=== PATIENT | male | born 1935 | race Caucasian/White ===

== ENCOUNTER 2016-08-11 10:57 | Observation (INO) ==
[2016-08-11] MEDS ORDERED: ACETAMINOPHEN 325 MG TABLET PO PRN (11:44)
[2016-08-11] MEDS ORDERED: MORPHINE 2 MG/1 ML SYRINGE IV PRN (11:44)
[2016-08-11] MEDS ORDERED: MAGNESIUM SULF RIDER 4 GM in PREMIX 1 EACH IV PRN (11:44)
[2016-08-11] MEDS ORDERED: DOCUSATE SODIUM 100 MG CAPSULE PO PRN (11:44)
[2016-08-11] MEDS ORDERED: ZALEPLON 5 MG CAPSULE PO PRN (11:44)
[2016-08-11] MEDS ORDERED: ONDANSETRON 4 MG/2 ML VIAL IV PRN (11:44)
[2016-08-11] MEDS ORDERED: MAGNESIUM SULF RIDER 2 GM in PREMIX 1 EACH IV PRN (11:44)
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
[2016-08-11 12:06] LABS: Basophils # 0.1 10*3/uL (0.0-0.2); Basophils % 0.5 % (0.0-0.8); Eosinophils # 0.2 10*3/uL (0.0-0.87); Eosinophils % 2.2 % (0.00-10.9); Hematocrit 40.4 VOL% (42.0-52.0); Hemoglobin 13.6 GM/DL (14.0-18.0); Immature Granulocytes % 0.9 %; Immature Granulocytes Absolute 0.09 #; Lymphocytes % 20.2 % (21.2-54.2); Mean Corpuscular HGB Conc 33.7 GM/DL (32-36); Mean Corpuscular Hemoglobin 31 PG (27-34); Mean Corpuscular Volume 90.8 FL (87-102); Mean Platelet Volume 12.5 FL (9.6-12.0); Monocytes # 0.8 10*3/uL (0.11-0.8); Monocytes % 7.7 % (1.7-12.7); Neutrophils # 6.9 10*3/uL (1.4-7.4); Neutrophils % 68.5 % (38.7-73.9); Platelet Count 213 T/CUMM (130-400); Red Blood Count 4.45 MC/CUMM (3.8-5.5); Red Cell Distribution Width 13.2 % (9.3-17.3); White Blood Count 10.1 T/CUMM (4-12)
--- NOTE | 2016-08-11 12:08 | EKG Report ---
Stationary ECG Study [facility] Test Date: 08/11/2016 12:08:38 PM Pat Name: MAINE GONSALVES Department: Room: 268 Gender: M Operations Liaison: : 1935 Requested by: Zonia Zee Order Number: [id number] Dat MD: HERB FERMIN Intervals [place] Rate: 54 P: 999 DE: 0 QRS: 75 QRSD: 101 T: 90 QT: 383 QTc: 370 Interpretive Statements ATRIAL FIBRILLATION WITH SLOW VENTRICULAR RESPONSE Electronically Signed On 08-11-16 15:57:50 CDT by HERB FERMIN [email or web address]
[2016-08-11 12:37] LABS: Bilirubin,Total 1.4 MG/DL (0.2-1.0); Calcium 9.3 MG/DL (8.5-10.1); Osmolality,Calculated 290.4 MOS/KG (273-304); Potassium 4.1 MMOL/L (3.5-5.1); Total Protein 5.8 G/DL (6.4-8.3)
--- NOTE | 2016-08-11 13:00 | CT Report ---
Exam: CT scan of brain without contrast Date: 08/11/2016 Indication: TIA headache neck pain trauma Comparison: 05/27/2010 Patient's classification: Inpatient Technical: Images were obtained from the skull base to the vertex without the use of intravenous contrast. Dose reduction was performed with decreasing kv and mA and automated exposure Total DLP: 1073.1 mGy*cm Findings: There is vascular calcification of the vertebral and internal carotid arteries. The brainstem is intact. The cerebellum reveals minimal atrophic changes. Atrophy is present within the cerebral hemispheres with small vessel ischemic changes present. Tiny lacunar infarction suspected in the right basal ganglia which has developed when compared to previous study from 2010 but appears chronic. Paranasal sinuses globes and sella mastoids are otherwise intact. Calvarium is unremarkable. Findings suggest old left zygomatic arch fracture Impression: 1. Global atrophy 2. Diffuse small vessel ischemic changes 3. Small lacunar infarction right basal ganglia appears chronic but new when compared to the previous exam. 4. No obvious acute hemorrhage infarction or mass effect clearly seen. PROCEDURE INTERPRETED AT [facility] DEPARTMENT OF RADIOLOGY Final Report Signed by: Dr. Jairo Mak
[2016-08-11] MEDS ORDERED: diphenhydrAMINE CAP 50 MG CAPSULE ONE (13:53)
[2016-08-11] MEDS ORDERED: DIAZEPAM 5 MG TABLET ONE (13:53)
[2016-08-11 14:00] LABS: Apearance,Urine CLOUDY (Clear); Bilirubin,Urine Negative (Negative); Blood, Urine Small mg/dL (Negative); Glucose,Urine (UA) Negative (Negative); Ketones,Urine Negative (Negative); Mucus,Urine Occasional /LPF (Occasional); Nitrite,Urine Positive (Negative); Protein,Urine 30 MG/DL; RBC,Urine 17 /HPF (0-4); Urine Color Yellow (Yellow); Urine Specific Gravity 1.013 (1.001-1.035); WBC,Urine 607 /HPF (0-6)
--- NOTE | 2016-08-11 14:48 | Neurology Consult Note ---
History of Present Illness History of present illness: Mr. Tate is a 81-year-old male, with past medical history significant for chronic atrial fibrillation admitted to the hospital with off and on slurred speech since Monday. Patient reported sometimes is difficult to get the words out. He is also complaining of some diffuse headache and questionable confusion. He does have difficulty in expressing his problems. However today he spoke fine. No slurred speech noticed. A CT scan shows right basal ganglia infarct but it is not clear that is new or old. Due to atrial fibrillation patient has been on Eliquis in the past for stroke prevention however he developed significant hematuria and Eliquis was stopped. He was continued on aspirin only. Never had a stroke before in his life. He has a history of left leg problems because of accident. Home Medications Medication Instructions Recorded Confirmed Type Atorvastatin [Lipitor] 40 mg PO BEDTIME 11/04/15 08/11/16 History Carvedilol 6.25 mg PO BID 11/04/15 08/11/16 History Digoxin Tab [Lanoxin Tab] 0.25 mg PO DAILY 11/04/15 08/11/16 History Irbesartan 150 mg PO BID 11/04/15 08/11/16 History Aspirin [Ecotrin] 81 mg PO DAILY 08/11/16 08/11/16 History Levothyroxine Tab [Synthroid Tab] 25 mcg PO DAILY@0700 08/11/16 08/11/16 History Allergies Allergy/AdvReac Type Severity Reaction Status Date / Time No Known Allergies Allergy Verified 11/05/15 11:24 12 point system: reviewed and no additional remarkable complaints except as stated Medical,Surgical,& Family Hx - Medical History Cardio: History of: Hypertension Endocrine: History of: Dyslipidemia Rheumatology: No history of;: Rheumatological Problems Genitourinary: History of: Kidney Stones Gastrointestinal: History of: Gastrointestinal Cancer, GI Problems (constipation ) Hematology: No history of: Blood Disorders - Surgical History Cardiac Surgeries: Sugical HX of: Cardiac Catheterization (stents) Abdominal Surgeries: Surgical HX of: Cholecystectomy Orthopedic Surgeries: Surgical HX of;: Orthopedic Surgery (left knee repair, jaw surgery) - Family History Family History: Reports;: Family Heart Disease, Family Hypertension - Social History Smoking Status: Never smoker Frequency of Alcohol Use: None Type of Drug Use: None Exam - Constitutional Vitals: Period Temp Pulse Resp BP Sys/Barber Pulse Ox Last 24 Hr 98.6 F-98.6 F 65-65 18 151/99 98 Exam: GENERAL: Patient is in no acute distress. NECK: Neck is supple. There is no JVD. No carotid bruits present. No thyroid masses. CVS: First and second heart sounds are normal. There is no S3 present. Regular rate and rhythm. RESPIRATORY: Lungs are clear to auscultation without any rales or rhonchi. ABDOMEN: Soft and non-tender. Bowel sounds are present. There is no hepatosplenomegaly. EXT: There is no palpable edema. Peripheral pulses are present. Skin: No rashes Central Nervous system: General: Alert, awake and Oriented x 3 Speech: Fluent Comprehension: Intact and normal Facial expressions: Normal Cranial Nerves: CN1/Olfactory: Normal CN II/ Optic: Normal, Visual Roman unreliable CN III, and : CONSTANTINE & EOMI CN V: Normal & intact CN VII: face is symmetric CNVIII: Normal CN XI/X/XI/XII: Intact and Normal Motor: Bulk and Tone is normal. Strength in the right 5/5 Strength in the left 4/5 Sensory: Grossly intact for all the modalities of PP, LT and temp sense Reflexes: 1+ and symmetrical Cerebellar function: Normal finger to nose and heel to [place] testing. Toes: Equivocal Gait: Able to get up and walk Results - Labs CBC & BMP: 08/11/16 11:55 08/11/16 11:55 Assessment and Plan (1) Slurred speech Status: Acute Assessment and plan: Continue aspirin for now Agree with urology consult MRI of the brain Carotid ultrasound Lipid panel Thank you for the consult Current Visit: Yes
--- NOTE | 2016-08-11 15:33 | XRay Report ---
Portable chest Date: 08/11/2016 Clinical history: Shortness of breath Comparison: 05/31/2010 Technique: Portable AP sitting chest Findings: The heart is minimally enlarged with more prominent pulmonary vasculature. Progressive diffuse parenchymal findings with stable mediastinum. Degenerative changes are noted. Old healed left rib fractures with prior cholecystectomy. Impression: Mild CHF with progressive minimal cardiomegaly. PROCEDURE INTERPRETED AT [facility] DEPARTMENT OF RADIOLOGY Final Report Signed by: Dr. Maribel Connolly
--- NOTE | 2016-08-11 16:01 | XRay Report ---
Exam: XR orbits for mri Date: 08/11/2016 3:14 PM Comparison: None Indication: Evaluate for metallic foreign body Technique:[3 view orbits] Findings: Metallic surgical wires noted in the floor and lateral wall of the left orbit and in the left mandible location. Impression: Postoperative findings in the left orbital rim and left mandible. No additional metallic densities noted. PROCEDURE INTERPRETED AT [facility] DEPARTMENT OF RADIOLOGY Final Report Signed by: Dr. Maribel Connolly
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
--- NOTE | 2016-08-11 16:19 | Ultrasound Report ---
Exam: Carotid ultrasound Date: 08/11/2016 Comparison: None Technique: Duplex scans of the carotid and vertebral arteries using B-mode/Mayberry scale imaging and Doppler spectral analysis and color flow. Reason: Slurred speech Findings: The right ICA measures 6.2 mm in diameter and the left ICA measures 6.4 mm in diameter. Color-flow documented in the visualized arteries. The peak systolic velocities are as follows: Right CCA: 66.7 cm/s Right ICA: 73.5 cm/s Right ECA: 115.2 cm/s Left CCA: 73.8 cm/s Left ICA: 87.1 cm/s Left ECA: 81.4 cm/s The peak systolic ICA/CCA velocity ratios are as follows: 1.1 on the right and 1.2 on the left. Antegrade flow is present in both vertebral arteries. Impression:[Less than 50% stenosis in both internal carotid arteries with heterogeneous plaque formation. Antegrade flow in both vertebral artery. The patient's heart rate was noted to be irregular on some of the scans obtained.] The Society of Radiologists in Ultrasound consensus conference criteria was used. The Ultrasound images were captured and stored. PROCEDURE INTERPRETED AT [facility] DEPARTMENT OF RADIOLOGY Final Report Signed by: Dr. Maribel Connolly
--- NOTE | 2016-08-11 17:47 | Urology Consultation ---
Assessment and Plan - Time spent with patient Time spent with patient: Greater than 30 minutes (1) Gross hematuria Status: Acute Assessment and plan: Patient is willing to begin Avodart. I wrote him a prescription for this. I cautioned the patient and family about early failure as it takes a while for these medicines to work. Avodart prescription given to the patient. I will see him back as needed. Current Visit: Yes History of Present Illness - Data of Consult Patient: known to practice within the last 3 years Consult date: 08/11/16 Requesting Physician: Sabino Romero - Consult Narrative Reason for consult: Recurrent hematuria History of present illness: Mr. Tate is a 81 year old male who has cardiovascular disease and needs to be on Eliquis. But he has recurrent hematuria due to the Eliquis. He is usually a patient of Dr. Steven Gray. But I was requested to render my opinion. I reviewed his cystoscopy that he had last fall and he has a small partially obstructing prostate but a large amount of dilated veins on his prostate. Bladder was clear. His upper tracts were normal. I discussed our 2 options. I explained to the family and the patient that we could try Avodart. However Avodart will take some time to be effective at least a minimum of 30 days. In the interim if he begins his Eliquis again he can again have gross hematuria. But if he dies I would not consider that a failure I would continue taken the Avodart and give it more time. The other option would be laser vaporization of the prostate but he is not interested in any type of surgical intervention. My recommendation is to begin Avodart and see if this will help. But I cautioned the patient and his family about a failure early because it just simply takes time with these 5 alpha reductase medications. The patient is willing to try. I wrote a prescription for Avodart. Avodart 0.5 mg #90, 1 p.o. daily, 3 refills. I will see him back as needed. CC: Atul Bailey MD - Home Medications and Allergies Home Medications: Home Medications Medication Instructions Recorded Confirmed Type Atorvastatin [Lipitor] 40 mg PO BEDTIME 11/04/15 08/11/16 History Carvedilol 6.25 mg PO BID 11/04/15 08/11/16 History Digoxin Tab [Lanoxin Tab] 0.25 mg PO DAILY 11/04/15 08/11/16 History Irbesartan 150 mg PO BID 11/04/15 08/11/16 History Aspirin [Ecotrin] 81 mg PO DAILY 08/11/16 08/11/16 History Levothyroxine Tab [Synthroid Tab] 25 mcg PO DAILY@0700 08/11/16 08/11/16 History Allergies/Adverse Reactions: Allergies Allergy/AdvReac Type Severity Reaction Status Date / Time No Known Allergies Allergy Verified 11/05/15 11:24 12 point system: reviewed and no additional remarkable complaints except as stated - Genitourinary Genitourinary: Present: hematuria (Recurrent gross) Exam - Constitutional Vitals: Period Temp Pulse Resp BP Sys/Barber Pulse Ox Last 24 Hr 98.6 F-98.7 F 56-65 18-18 151-169/94-102 98-98 Results - Labs CBC & BMP: 08/11/16 11:55 08/11/16 11:55
--- NOTE | 2016-08-11 17:49 | Magnetic Resonance Report ---
Exam: MR head/brain wo con Date: 08/11/2016 2:49 PM Comparison: CT brain 08/11/2016 Indication: Slurred speech, headache, abnormal CT Technique:[Multiple acquisitions were obtained including sagittal T1, coronal T2, and axial ADC, diffusion, FLAIR, T2, GRE, and T1 scans without contrast only. Scans were obtained on 1.5 [place]ina magnet.] Findings: The ventricles remain normal in size with no midline displacement. The pituitary has a normal appearance and the cerebellar tonsils are normal in their location. No acute infarction is identified on the diffusion scans. Enlarged perivascular spaces are noted with additional chronic right basal ganglia lacunar infarction. No acute hemorrhage, mass, or extracerebral collection. Diffuse atrophy and FLAIR/T2 hyperintensities. Associated chronic subdural hygromas. No acute findings in the paranasal sinuses, temporal bones, orbits, or pamunkey of [place]. Impression: No acute infarction identified. Enlarged perivascular spaces with additional chronic right basal ganglia lacunar infarction. Diffuse cerebral atrophy and associated chronic subdural hygromas. Moderate microvascular disease. T2 hyperintensities can also be associated with demyelinating disease, vasculitis, viral illness, etc. PROCEDURE INTERPRETED AT [facility] DEPARTMENT OF RADIOLOGY Final Report Signed by: Dr. Maribel Connolly
[2016-08-11] MEDS: CARVEDILOL 6.25 MG TABLET PO SCH (18:07)
[2016-08-11] MEDS ORDERED: ENOXAPARIN 40 MG/0.4 ML SYRINGE SUBCUT SCH (21:00)
[2016-08-11] MEDS ORDERED: ATORVASTATIN 40 MG TABLET PO SCH (21:00)
[2016-08-11] MEDS: IRBESARTAN 150 MG TABLET PO SCH (21:06)
[2016-08-12 05:09] LABS: Basophils % 0.4 % (0.0-0.8); Eosinophils # 0.2 10*3/uL (0.0-0.87); Eosinophils % 1.7 % (0.00-10.9); Hematocrit 39.4 VOL% (42.0-52.0); Hemoglobin 13.4 GM/DL (14.0-18.0); Immature Granulocytes % 0.8 %; Immature Granulocytes Absolute 0.07 #; Lymphocytes # 2.1 10*3/uL (1.4-4.0); Lymphocytes % 22.8 % (21.2-54.2); Mean Corpuscular Hemoglobin 31 PG (27-34); Mean Corpuscular Volume 90.2 FL (87-102); Mean Platelet Volume 13.1 FL (9.6-12.0); Monocytes # 0.6 10*3/uL (0.11-0.8); Monocytes % 6.8 % (1.7-12.7); Neutrophils # 6.1 10*3/uL (1.4-7.4); Neutrophils % 67.5 % (38.7-73.9); Platelet Count 199 T/CUMM (130-400); Red Blood Count 4.37 MC/CUMM (3.8-5.5); Red Cell Distribution Width 13.1 % (9.3-17.3); White Blood Count 9.1 T/CUMM (4-12)
[2016-08-12 05:45] LABS: Calcium 8.7 MG/DL (8.5-10.1); Osmolality,Calculated 288.6 MOS/KG (273-304); Potassium 3.9 MMOL/L (3.5-5.1); Risk Ratio 2.63; Total Protein 5.7 G/DL (6.4-8.3)
[2016-08-12] MEDS ORDERED: LEVOTHYROXINE 25 MCG TABLET PO SCH (07:00)
--- NOTE | 2016-08-12 08:43 | Cardiology Progress Note ---
Cardiology - PN: Subj Interval history: Cardiology note No temperature Telemetry shows controlled atrial fib. Blood pressure 136/80 in the left arm by me Irregular rhythm with soft systolic murmur Decreased breath sounds but clear Abdomen soft MRI negative for acute infarct. It does confirm old chronic right lacunar infarct. UA shows large clumps of white blood cells with bacteria Urine culture pending. He denies dysuria or hematuria. Plan IV Levaquin Urine culture pending Started on Avodart 0.[address] Foster Restart Eliquis 2.5 mg twice daily Probable home later today. Patient's is sick and he wants to be home with her Follow-up with Dr. Bailey in 1 week Exam (Progress Note) - Constitutional Vitals: Period Temp Pulse Resp BP Sys/Barber Pulse Ox Last 24 Hr 97 F-98.8 F 56-88 16-20 147-169/67-102 97-98 Result/EKG - Labs CBC & BMP: 08/12/16 04:29 08/12/16 04:29 Labs: Laboratory Results - last 24 hr 08/11/16 08/11/16 08/11/16 11:55 11:55 11:55 WBC 10.1 RBC 4.45 Hgb 13.6 L Hct 40.4 L MCV 90.8 MCH 31 MCHC 33.7 RDW 13.2 Plt Count 213 MPV 12.5 H Neut % (Auto) 68.5 Lymph % (Auto) 20.2 L Kerr % (Auto) 7.7 Eos % (Auto) 2.2 Baso % (Auto) 0.5 Neut # (Auto) 6.9 Lymph # (Auto) 2.0 Kerr # (Auto) 0.8 Eos # (Auto) 0.2 Baso # (Auto) 0.1 Immature Gran % 0.9 Nucleated RBC % 0.0 Immature Gran # 0.09 Nucleated RBCs # 0.00 Sodium 147 H Potassium 4.1 Chloride 110 H Carbon Dioxide 33 H Anion Gap 8.1 BUN 13 Creatinine 1.10 GFR Calculation 72 BUN/Creatinine Ratio 11.00 Glucose 86 Calculated Osmolality 290.4 Calcium 9.3 Total Bilirubin 1.40 H AST 15 ALT 17 Alkaline Phosphatase 78 Total Protein 5.8 L Albumin 3.0 L Globulin 2.8 Albumin/Globulin Ratio 1.0 L Triglycerides Cholesterol LDL Cholesterol VLDL Cholesterol HDL Cholesterol Heart Disease Risk Ratio TSH 3rd Generation 1.010 Urine Color Urine Appearance Urine pH Ur Specific Ferris Urine Protein Urine Glucose (UA) Urine Ketones Urine Blood Urine Nitrate Urine Bilirubin Urine Urobilinogen Urine Leukocytes Urine RBC Urine WBC Urine WBC Clumps Urine Mucus Ur Culture Indicated? 08/11/16 08/12/16 08/12/16 13:47 04:29 04:29 WBC 9.1 RBC 4.37 Hgb 13.4 L Hct 39.4 L MCV 90.2 MCH 31 MCHC 34.0 RDW 13.1 Plt Count 199 MPV 13.1 H Neut % (Auto) 67.5 Lymph % (Auto) 22.8 Kerr % (Auto) 6.8 Eos % (Auto) 1.7 Baso % (Auto) 0.4 Neut # (Auto) 6.1 Lymph # (Auto) 2.1 Kerr # (Auto) 0.6 Eos # (Auto) 0.2 Baso # (Auto) 0.0 Immature Gran % 0.8 Nucleated RBC % 0.0 Immature Gran # 0.07 Nucleated RBCs # 0.00 Sodium 146 H Potassium 3.9 Chloride 109 H Carbon Dioxide 29 Anion Gap 11.9 BUN 10 Creatinine 1.00 GFR Calculation 80 BUN/Creatinine Ratio 10.00 Glucose 95 Calculated Osmolality 288.6 Calcium 8.7 Total Bilirubin 2.00 H AST 14 ALT 17 Alkaline Phosphatase 78 Total Protein 5.7 L Albumin 3.0 L Globulin 2.7 Albumin/Globulin Ratio 1.1 Triglycerides 70 Cholesterol 79 LDL Cholesterol 44.0 VLDL Cholesterol 14.0 HDL Cholesterol 30 L Heart Disease Risk Ratio 2.63 TSH 3rd Generation Urine Color Yellow Urine Appearance Cloudy Urine pH 6.0 Ur Specific Ferris 1.013 Urine Protein 30 Urine Glucose (UA) Negative Urine Ketones Negative Urine Blood Small Urine Nitrate Positive H Urine Bilirubin Negative Urine Urobilinogen 4.0 H Urine Leukocytes Large H Urine RBC 17 Urine WBC 607 Urine WBC Clumps Many Urine Mucus Occasional Ur Culture Indicated? Results to follow
[2016-08-12] MEDS ORDERED: ASPIRIN EC 81 MG TABLET PO SCH (09:00)
[2016-08-12] MEDS ORDERED: LEVOFLOXACIN INJ 750 MG in PREMIX 1 EACH IV ONE (09:00)
[2016-08-12] MEDS ORDERED: PANTOPRAZOLE 40 MG TABLET PO SCH (09:00)
[2016-08-12] MEDS: IRBESARTAN 150 MG TABLET PO SCH (10:02)
[2016-08-12] MEDS: CARVEDILOL 6.25 MG TABLET PO SCH (10:03)
[2016-08-12] MEDS ORDERED: SULFAMETHOX/TRIMETHOPRIM 800-160 MG TABLET PO SCH (10:30)
[2016-08-12] MEDS ORDERED: diphenhydrAMINE CAP 50 MG CAPSULE PO ONE (11:10)
[2016-08-12] MEDS ORDERED: diphenhydrAMINE CAP 50 MG CAPSULE ONE (11:11)
[2016-08-12] MEDS ORDERED: DIGOXIN 0.25 MG TABLET PO SCH (13:00)
[2016-08-12 14:32] VITALS: BP 156/71
--- NOTE | 2016-08-12 15:30 | Discharge Summary ---
Hospital Course - Hospital Course Hospital Course: [employer] ARCHITECT: DR. BAILEY Patient was admitted directly from clinic by Dr. Bailey August 11, 2016 after experiencing "is reported to be a TIA/stroke several days prior to seeking medical attention with Dr. Bailey. He had slurred speech, mild headache and left arm weakness. The symptoms resolved prior to being seen by Dr. Bailey however, he still reported a very slight sensation of weakness in the left arm. Also, the day prior to admission, patient experienced an accident when his lawnmower and trailer ran over his neck and head. He was agreeable for hospitalization. Patient had been off of Eliquis because of recurrent hematuria. Several weeks prior to admission the Eliquis was discontinued and he was changed to aspirin for stroke prevention. Neurology was consulted and saw patient during hospital stay. 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 Carotid ultrasounds revealed less than 50% stenosis in both internal carotid arteries. Telemetry revealed controlled atrial fibrillation during the hospital stay. Eliquis was restarted at 2.5 mg twice daily per Dr. Romero. Dr. Foster saw patient in consultation. He was diagnosed with a urinary tract infection, started on Levaquin and also on Avodart. Levaquin caused a rash. This was discontinued and he was given a prescription for Bactrim to take for 1 week. Urine culture pending at discharge. Patient was seen by urologist during hospital stay. Patient was started on Avodart. Dr. Foster felt as if re-challenging patient with Eliquis was a good option. If he experiences gross hematuria again, obviously would have to be discontinued. Patient was given a follow-up appointment with Dr. Foster at discharge. Patient is being given a follow-up appointment with Dr. Bailey in approximately 1-2 weeks. At that visit the following will be obtained: BMP, magnesium, CBC. Patient was anxious for release home today and he was discharged home in stable condition. Discharge medications include the following: Eliquis 2.5 mg orally twice daily Avodart 0.5 mg orally daily Bactrim DS 500 mg orally twice daily 7 day Atorvastatin 40 mg orally each evening Coreg 6.25 mg orally twice daily Digoxin 0.25 mg orally daily Avapro 150 mg orally twice daily Levothyroxine 25 mcg 1 p.o. daily Patient is not being discharged on aspirin as he is taking Eliquis. - Time spent with patient Time with patient DS: Greater than 30 minutes Diagnosis - Discharge Diagnosis (1) CAD (coronary artery disease) Status: Chronic (2) Atrial fibrillation, chronic Status: Chronic (3) Hyperlipidemia Status: Chronic (4) Hypertension Status: Chronic (5) Hypothyroidism Status: Chronic (6) Vitamin D deficiency Status: Chronic (7) TIA (transient ischemic attack) Status: Chronic (8) High risk medication use Status: Chronic (9) Hematuria Status: Resolved (10) UTI (urinary tract infection) Status: Acute Specialty Discharge - Follow Up or Referrals Follow up with: Atul Bailey MD [Physician] - (1-2 weeks. BMp, Mg, CBC) Discharge Plan - Discharge Data Disposition: Disch To Home/Self Care Condition at Discharge: Stable Discharge Diet: heart healthy Activity: resume usual activities as tolerated Hygiene: no restrictions Weight Bearing at Discharge: full weight bearing Driving: not until seen by doctor Contact your physician if you experience:: fever over 101, Difficulty voiding, Redness or swelling, Nausea/Vomiting, Shortness of breath, Bleeding, pain uncontrolled by pain medications - Discharge Medications New Apixaban [Eliquis] 2.5 mg PO BID #60 tablet Sulfameth/Trimeth 800-160 Tab [Bactrim DS Tab] 1 tablet PO BID #14 tablet Continue Atorvastatin [Lipitor] 40 mg PO BEDTIME Carvedilol 6.25 mg PO BID Irbesartan 150 mg PO BID Digoxin Tab [Lanoxin Tab] 0.25 mg PO DAILY Levothyroxine Tab [Synthroid Tab] 25 mcg PO DAILY@0700 Discontinued Aspirin [Ecotrin] 81 mg PO DAILY - Follow Up or Referral - Forms/Instructions Exam - Constitutional Vitals: Period Temp Pulse Resp BP Sys/Barber Pulse Ox Last 24 Hr 97 F-98.8 F 56-88 16-20 147-169/67-102 97-98 Exam: General: [Appears well with no apparent distress.] [Pleasant and cooperative. ] [Appears comfortable.] HEENT: [PERRL, normocephalic, atraumatic. Mucous membranes moist. No jaundice noted. Conjunctiva moist and clear, sclerae anicteric] Neck: No JVD/HJR, no thyromegaly or lymphadenopathy noted. No carotid bruit appreciated Cardiac: [Irregularly irregular rhythm, controlled rate] [No murmur rub or gallop.] Lungs: [Clear to auscultation without accessory muscle use to assist the respiratory pattern.] Not requiring oxygen Abdomen: Soft, bowel sounds normoactive. Nontender and nondistended. No abdominal bruit or thrill noted. No masses noted. Musculoskeletal: No fluid collection. Decreased range of motion is noted. Extremities: No clubbing, cyanosis noted. [ No edema noted.] Upper extremity pulses 2+. Lower extremity pulses 2+. Capillary refill less than 3 seconds. Skin: No unusual lesions or rashes. No skin breakdown appreciated. Neuro: Awake, alert and oriented 3. Moves all extremities well without hemiparesis or paralysis. No essential tremor is appreciated. Discharge Results Procedures and tests throughout hospitalization: Pending Orders 08/11/16 Urine Culture Routine 08/13/16 04:00 BMP w/ Mg [Basic Metabolic Panel w/Mg] IN AM Comp Blood Count Auto Diff IN AM 08/14/16 04:00 BMP w/ Mg [Basic Metabolic Panel w/Mg] IN AM Comp Blood Count Auto Diff IN AM 08/15/16 04:00 BMP w/ Mg [Basic Metabolic Panel w/Mg] IN AM Comp Blood Count Auto Diff IN AM Labs on day of discharge: Labs from last 24 hours 08/12/16 08/12/16 04:29 04:29 WBC 9.1 RBC 4.37 Hgb 13.4 L Hct 39.4 L MCV 90.2 MCH 31 MCHC 34.0 RDW 13.1 Plt Count 199 MPV 13.1 H Neut % (Auto) 67.5 Lymph % (Auto) 22.8 [place] % (Auto) 6.8 Eos % (Auto) 1.7 Baso % (Auto) 0.4 Neut # (Auto) 6.1 Lymph # (Auto) 2.1 [place] # (Auto) 0.6 Eos # (Auto) 0.2 Baso # (Auto) 0.0 Immature Gran % 0.8 Nucleated RBC % 0.0 Immature Gran # 0.07 Nucleated RBCs # 0.00 Sodium 146 H Potassium 3.9 Chloride 109 H Carbon Dioxide 29 Anion Gap 11.9 BUN 10 Creatinine 1.00 GFR Calculation 80 BUN/Creatinine Ratio 10.00 Glucose 95 Calculated Osmolality 288.6 Calcium 8.7 Total Bilirubin 2.00 H AST 14 ALT 17 Alkaline Phosphatase 78 Total Protein 5.7 L Albumin 3.0 L Globulin 2.7 Albumin/Globulin Ratio 1.1 Triglycerides 70 Cholesterol 79 LDL Cholesterol 44.0 VLDL Cholesterol 14.0 HDL Cholesterol 30 L Heart Disease Risk Ratio 2.63 Preliminary micro results at discharge 08/11/16 Unknown Urine Culture - Preliminary Urine,Voided Gram Positive Cocci DS: Provider Date of admission: 08/11/16 10:57 Primary care physician: MART Bond Attending physician on admission: Atul Bailey MD Consults: 08/11/16 11:44 Consult to Physician [CONS] Routine Comment: recent TIA Consulting Provider: Johnny Hope Person Notified: Marisel Date Notified: 08/11/16 Time Notified: 11:40 08/11/16 11:46 Consult to Physical Therapy [CONS] Routine Reason for Physical Therapy: Weakness Start Therapy: Today Consult Comment: weakness 08/11/16 11:47 Consult to Physician [CONS] Routine Comment: hematuria on Eliquis. Needs detention anticoag Consulting Provider: [facility] mikhail Santos Person Notified: Karmen Date Notified: 08/11/16 Time Notified: 13:30 Discharging clinician: Zonia Camp NP Expected date of discharge: 08/12/16
== END 2016-08-12 16:51 | disposition home or self-care (01) ==
LOC: N.TELES 10:57 → INTOOBSV 10:57
PROVIDERS: ADMIT Internal Medicine Cardiovascular Disease; ATTEND Internal Medicine Cardiovascular Disease

== ENCOUNTER 2019-02-18 05:11 | Inpatient (IN) ==
[2019-02-18] MEDS ORDERED: METOPROLOL TARTRATE 25 MG TABLET PO STA (05:35)
[2019-02-18 06:07] LABS: Basophils % 0.4 % (0.0-0.8); Eosinophils % 0.1 % (0.00-10.9); Hematocrit 37.8 VOL% (42.0-52.0); Hemoglobin 12.8 GM/DL (14.0-18.0); Immature Granulocytes % 1.5 %; Immature Granulocytes Absolute 0.11 #; Lymphocytes # 0.8 10*3/uL (1.4-4.0); Lymphocytes % 10.8 % (21.2-54.2); Mean Corpuscular HGB Conc 33.9 GM/DL (32-36); Mean Corpuscular Volume 95.5 FL (87-102); Mean Platelet Volume 12.2 FL (9.6-12.0); Monocytes % 5.3 % (1.7-12.7); Neutrophils % 81.9 % (38.7-73.9); Platelet Count 167 T/CUMM (130-400); Red Blood Count 3.96 MC/CUMM (3.8-5.5); Red Cell Distribution Width 13.4 % (9.3-17.3); White Blood Count 7.3 T/CUMM (4-12)
[2019-02-18 06:29] LABS: Band Neutrophils 3 % (0-10); Hypochromasia Slight; Lymphocytes 10 % (20-55); Microcytosis Slight; Segmented Neutrophils 78 % (50-85); Total Cells Counted 100
[2019-02-18 06:30] LABS: Platelet Estimate Adequate
[2019-02-18 06:31] LABS: Apearance,Urine Slightly Hazy (Clear); Bilirubin,Urine Negative (Negative); Blood, Urine Moderate mg/dL (Negative); Calcium Oxalate Crystals,Urine Occasional /HPF (Few); Glucose,Urine (UA) 50 mg/dL (Negative); Hyaline Casts,Urine 4 /LPF (0-3); Ketones,Urine 5 mg/dL (Negative); Mucus,Urine Few /LPF (Occasional); Nitrite,Urine Negative (Negative); Protein,Urine 100 MG/DL; RBC,Urine 35 /HPF (0-4); Urine Color Yellow (Yellow); Urine Specific Gravity 1.017 (1.001-1.035); Urine Urobilinogen < 2.0 EU/DL (0.2-1.0); WBC,Urine 21 /HPF (0-6)
[2019-02-18] MEDS ORDERED: cefTRIAXone 1,000 MG in SODIUM CHLORIDE 0.9% 100 ML IV STA (06:39)
[2019-02-18] MEDS ORDERED: cefTRIAXone 1,000 MG in SYRINGE 1 EACH IV STA (06:40)
[2019-02-18 06:50] LABS: Bilirubin,Total 1.2 MG/DL (0.2-1.0); Calcium 8.6 MG/DL (8.5-10.1); Osmolality,Calculated 292.6 MOS/KG (273-304); Thyroid Stimulating Hormone 1.24 uIU/ml (0.358-3.74); Total Protein 6.1 G/DL (6.4-8.3)
[2019-02-18] MEDS ORDERED: POTASSIUM CHLORIDE 20 MEQ TABLET PO STA (06:59)
[2019-02-18] MEDS ORDERED: FUROSEMIDE 20 MG/2 ML VIAL IV STA (07:01)
[2019-02-18] MEDS ORDERED: BISACODYL 5 MG TABLET PO PRN (07:55)
[2019-02-18] MEDS ORDERED: DOCUSATE SODIUM 100 MG CAPSULE PO PRN (07:55)
[2019-02-18] MEDS ORDERED: ACETAMINOPHEN 325 MG TABLET PO PRN (07:55)
[2019-02-18] MEDS ORDERED: ONDANSETRON 4 MG/2 ML VIAL IV PRN (07:55)
[2019-02-18] MEDS ORDERED: SODIUM CHLORIDE 0.9% 1,000 ML IV SCH (08:00)
[2019-02-18] MEDS ORDERED: POTASSIUM CHLORIDE RIDER 10 MEQ in PREMIX 1 EACH IV PRN (08:01)
[2019-02-18] MEDS ORDERED: IRBESARTAN 150 MG TABLET PO SCH (09:00)
[2019-02-18] MEDS ORDERED: hydroCHLOROthiazide 12.5 MG CAPSULE PO SCH (09:00)
[2019-02-18 09:50] LABS: Risk Ratio 3.07; VLDL CHOLESTEROL 9.2 MG/DL
[2019-02-18] MEDS: carvediloL 6.25 MG TABLET PO SCH ×2 (11:54→21:03)
[2019-02-18] MEDS: LOSARTAN/HCTZ 50-12.5 MG TABLET PO SCH (11:54)
[2019-02-18] MEDS: CALCIUM (CARBONATE)/VITAMIN D 600 MG-400 UNIT TABLET PO SCH ×2 (11:54→21:03)
[2019-02-18] MEDS: ESCITALOPRAM 10 MG TABLET PO SCH (11:54)
[2019-02-18] MEDS: APIXABAN 2.5 MG TABLET PO SCH ×2 (11:54→21:03)
[2019-02-18] MEDS: DIGOXIN 0.25 MG TABLET PO SCH (11:54)
[2019-02-18] MEDS: ALBUTEROL/IPRATROPIUM 3 ML NEB RESP TX SCH ×2 (13:30→19:18)
[2019-02-18] MEDS ORDERED: POTASSIUM CHLORIDE 20 MEQ TABLET PO PRN (14:13)
[2019-02-18] MEDS ORDERED: dilTIAZem Drip 125 MG/125 ML PREMIX IV SCH (14:30)
[2019-02-18] MEDS: DILTIAZEM 60 MG TABLET PO SCH ×2 (15:35→21:02)
[2019-02-18] MEDS ORDERED: FUROSEMIDE 40 MG/4 ML VIAL IV ONE (16:00)
[2019-02-18] MEDS: ATORVASTATIN 40 MG TABLET PO SCH (21:03)
[2019-02-19] MEDS: ALBUTEROL/IPRATROPIUM 3 ML NEB RESP TX SCH ×4 (01:07→20:00)
[2019-02-19] MEDS: LEVOTHYROXINE 25 MCG TABLET PO SCH (05:33)
[2019-02-19 05:48] LABS: Basophils % 0.6 % (0.0-0.8); Eosinophils # 0.1 10*3/uL (0.0-0.87); Hemoglobin 11.5 GM/DL (14.0-18.0); Lymphocytes # 1.4 10*3/uL (1.4-4.0); Lymphocytes % 29.2 % (21.2-54.2); Mean Corpuscular HGB Conc 32.9 GM/DL (32-36); Mean Corpuscular Volume 96.2 FL (87-102); Mean Platelet Volume 12.2 FL (9.6-12.0); Monocytes % 9.8 % (1.7-12.7); Neutrophils % 56.4 % (38.7-73.9); Platelet Count 164 T/CUMM (130-400); Red Blood Count 3.64 MC/CUMM (3.8-5.5); Red Cell Distribution Width 13.4 % (9.3-17.3); White Blood Count 4.9 T/CUMM (4-12)
[2019-02-19 06:06] LABS: Osmolality,Calculated 282.3 MOS/KG (273-304)
[2019-02-19 06:12] LABS: Eosinophils 1 % (0-10); Hypochromasia 1+; Lymphocytes 20 % (20-55); Microcytosis Slight; Platelet Estimate Adequate; Segmented Neutrophils 70 % (50-85); Total Cells Counted 100
[2019-02-19] MEDS ORDERED: POTASSIUM CHLORIDE 20 MEQ TABLET PO ONE ×2 (07:26→21:00)
[2019-02-19] MEDS: ESCITALOPRAM 10 MG TABLET PO SCH (08:38)
[2019-02-19] MEDS: CALCIUM (CARBONATE)/VITAMIN D 600 MG-400 UNIT TABLET PO SCH ×2 (08:46→21:31)
[2019-02-19] MEDS: APIXABAN 2.5 MG TABLET PO SCH ×2 (08:47→21:32)
[2019-02-19] MEDS: DIGOXIN 0.25 MG TABLET PO SCH (08:47)
[2019-02-19] MEDS: DILTIAZEM 60 MG TABLET PO SCH (08:47)
[2019-02-19] MEDS: LOSARTAN/HCTZ 50-12.5 MG TABLET PO SCH (08:48)
[2019-02-19] MEDS: cefTRIAXone 1,000 MG in SYRINGE 1 EACH IV SCH (08:48)
[2019-02-19] MEDS: carvediloL 6.25 MG TABLET PO SCH ×2 (08:48→21:31)
[2019-02-19] MEDS ORDERED: MAGNESIUM SULF RIDER 2 GM in PREMIX 1 EACH IV ONE (09:03)
[2019-02-19] MEDS ORDERED: SODIUM CHLORIDE 0.9% 1,000 ML IV SCH (11:30)
[2019-02-19] MEDS: DILTIAZEM CD 120 MG CAPSULE PO SCH ×2 (11:38→21:32)
[2019-02-19] MEDS: methylPREDNISolone SOD SUC 40 MG/1 ML VIAL IV SCH (13:43)
[2019-02-19] MEDS: ATORVASTATIN 40 MG TABLET PO SCH (21:32)
[2019-02-20] MEDS: ALBUTEROL/IPRATROPIUM 3 ML NEB RESP TX SCH ×3 (00:50→13:11)
[2019-02-20] MEDS: methylPREDNISolone SOD SUC 40 MG/1 ML VIAL IV SCH (01:19)
[2019-02-20 05:32] LABS: Basophils % 0.2 % (0.0-0.8); Hematocrit 36.3 VOL% (42.0-52.0); Hemoglobin 12.3 GM/DL (14.0-18.0); Immature Granulocytes % 1.1 %; Immature Granulocytes Absolute 0.07 #; Mean Corpuscular HGB Conc 33.9 GM/DL (32-36); Mean Corpuscular Volume 93.3 FL (87-102); Mean Platelet Volume 12.3 FL (9.6-12.0); Monocytes % 1.5 % (1.7-12.7); Neutrophils % 81.2 % (38.7-73.9); Platelet Count 194 T/CUMM (130-400); Red Blood Count 3.89 MC/CUMM (3.8-5.5); White Blood Count 6.2 T/CUMM (4-12)
[2019-02-20] MEDS: LEVOTHYROXINE 25 MCG TABLET PO SCH (05:42)
[2019-02-20 05:50] LABS: Calcium 8.6 MG/DL (8.5-10.1)
[2019-02-20 06:06] LABS: Band Neutrophils 5 % (0-10); Lymphocytes 15 % (20-55); Segmented Neutrophils 79 % (50-85); Total Cells Counted 100
[2019-02-20 06:07] LABS: Acanthocytes Few; Microcytosis Slight; Platelet Estimate Adequate
[2019-02-20] MEDS: PANTOPRAZOLE 40 MG TABLET PO SCH ×3 (07:57→09:20)
[2019-02-20] MEDS ORDERED: DILTIAZEM CD 240 MG CAPSULE PO SCH (09:00)
[2019-02-20] MEDS ORDERED: LOSARTAN 50 MG TABLET PO SCH (09:00)
[2019-02-20] MEDS: DIGOXIN 0.25 MG TABLET PO SCH (09:02)
[2019-02-20] MEDS: ESCITALOPRAM 10 MG TABLET PO SCH (09:03)
[2019-02-20] MEDS: CALCIUM (CARBONATE)/VITAMIN D 600 MG-400 UNIT TABLET PO SCH (09:03)
[2019-02-20] MEDS: APIXABAN 2.5 MG TABLET PO SCH (09:03)
[2019-02-20] MEDS: cefTRIAXone 1,000 MG in SYRINGE 1 EACH IV SCH (09:04)
[2019-02-20] MEDS: carvediloL 6.25 MG TABLET PO SCH (09:04)
[2019-02-20 12:17] VITALS: BP 124/76
== END 2019-02-20 13:45 | disposition home or self-care (01) | DRG 308 ==
LOC: EDUNIT# → EDBD → N.ED 05:11 → N.EDINP 07:55 → SUATTDRO 07:55 → N.EDINP 12:22 → N.TELEN 13:17
PROVIDERS: ADMIT Internal Medicine; ATTEND Internal Medicine

== ENCOUNTER 2020-04-08 14:41 | Inpatient (IN) ==
[2020-04-08 15:25] LABS: Basophils % 0.3 % (0.0-0.8); Hematocrit 34.6 VOL% (42.0-52.0); Hemoglobin 11.3 GM/DL (14.0-18.0); Immature Granulocytes % 0.7 %; Immature Granulocytes Absolute 0.08 #; Lymphocytes # 1.2 10*3/uL (1.4-4.0); Lymphocytes % 10.8 % (21.2-54.2); Mean Corpuscular HGB Conc 32.7 GM/DL (32-36); Mean Corpuscular Volume 95.8 FL (87-102); Mean Platelet Volume 12.1 FL (9.6-12.0); Monocytes % 6.8 % (1.7-12.7); Neutrophils % 81.4 % (38.7-73.9); Platelet Count 183 T/CUMM (130-400); Red Blood Count 3.61 MC/CUMM (3.8-5.5); Red Cell Distribution Width 13.7 % (9.3-17.3); White Blood Count 10.7 T/CUMM (4-12)
[2020-04-08 15:47] LABS: Albumin 2.7 G/DL (3.4-5.0); Bilirubin,Total 1.1 MG/DL (0.2-1.0); Calcium 8.6 MG/DL (8.5-10.1); Osmolality,Calculated 281.4 MOS/KG (273-304); Potassium 3.1 MMOL/L (3.5-5.1); Total Protein 5.7 G/DL (6.4-8.3)
[2020-04-08] MEDS ORDERED: POTASSIUM CHLORIDE 20 MEQ TABLET PO STA (15:53)
[2020-04-08] MEDS ORDERED: PIPERACILLIN/TAZOBACTAM 3,375 MG in SODIUM CHLORIDE 0.9% 100 ML IV STA (15:54)
[2020-04-08 15:57] LABS: INR 1.2; PT Patient Result 13.2 SECS (9.8-11.9); Partial Thromboplastin Time 31.6 SECS (23.9-33.8)
[2020-04-08] MEDS ORDERED: DEXTROSE 50% 25 GM/50 ML VIAL IV PRN (16:09)
[2020-04-08] MEDS ORDERED: CALCIUM CARBONATE CHEW 500 MG TABLET PO PRN (16:09)
[2020-04-08] MEDS ORDERED: DOCUSATE SODIUM 100 MG CAPSULE PO PRN (16:09)
[2020-04-08] MEDS ORDERED: ONDANSETRON 4 MG/2 ML VIAL IV PRN (16:09)
[2020-04-08] MEDS ORDERED: GLUCAGON 1 MG VIAL IM PRN (16:09)
[2020-04-08] MEDS ORDERED: ZALEPLON 5 MG CAPSULE PO PRN (16:09)
[2020-04-08] MEDS ORDERED: ACETAMINOPHEN 325 MG TABLET PO PRN (16:09)
[2020-04-09] MEDS: PIPERACILLIN/TAZOBACTAM 3,375 MG in SODIUM CHLORIDE 0.9% 100 ML IV SCH ×3 (00:23→17:31)
[2020-04-09] MEDS: carvediloL 6.25 MG TABLET PO SCH ×2 (05:03→17:31)
[2020-04-09 07:12] LABS: Basophils % 0.3 % (0.0-0.8); Hemoglobin 10.6 GM/DL (14.0-18.0); Immature Granulocytes % 1.1 %; Immature Granulocytes Absolute 0.11 #; Lymphocytes # 1.4 10*3/uL (1.4-4.0); Lymphocytes % 13.7 % (21.2-54.2); Mean Corpuscular HGB Conc 34.2 GM/DL (32-36); Mean Corpuscular Volume 93.9 FL (87-102); Monocytes % 9.5 % (1.7-12.7); Neutrophils % 75.4 % (38.7-73.9); Platelet Count 140 T/CUMM (130-400); Red Cell Distribution Width 13.7 % (9.3-17.3); White Blood Count 9.9 T/CUMM (4-12)
[2020-04-09] MEDS ORDERED: POTASSIUM CHLORIDE 20 MEQ TABLET PO PRN (07:13)
[2020-04-09] MEDS ORDERED: DEXTROSE 50% 25 GM/50 ML VIAL IV PRN (07:16)
[2020-04-09] MEDS ORDERED: hydrALAZINE 20 MG/1 ML VIAL IV PRN (07:19)
[2020-04-09 07:29] LABS: Albumin 2.3 G/DL (3.4-5.0); Calcium 8.3 MG/DL (8.5-10.1); Osmolality,Calculated 281.3 MOS/KG (273-304); Risk Ratio 2.21; Total Protein 5.8 G/DL (6.4-8.3); VLDL CHOLESTEROL 12.6 MG/DL
[2020-04-09] MEDS: INSULIN LISPRO 100 UNIT/ML SUBCUT SCH ×4 (09:53→21:11)
[2020-04-09] MEDS: APIXABAN 2.5 MG TABLET PO SCH ×2 (10:15→21:11)
[2020-04-09] MEDS: ESCITALOPRAM 10 MG TABLET PO SCH (10:16)
[2020-04-09] MEDS: PANTOPRAZOLE 40 MG TABLET PO SCH (10:19)
[2020-04-09] MEDS: MULTIVITAMIN (CENTRUM) TABLET PO SCH (10:19)
[2020-04-09] MEDS: POTASSIUM CHLORIDE 20 MEQ TABLET PO PRN ×3 (10:19→15:27)
[2020-04-09] MEDS: LOSARTAN 50 MG TABLET PO SCH (10:19)
[2020-04-09] MEDS: BIMATOPROST 0.01% OPH SOLN 2.5 ML BOTTLE BOTH EYES SCH (10:20)
[2020-04-09] MEDS: CHOLECALCIFEROL 5,000 UNIT TABLET PO SCH (10:20)
[2020-04-09] MEDS: DIGOXIN 0.25 MG TABLET PO SCH (12:59)
[2020-04-09 14:20] LABS: Bilirubin,Urine Negative (Negative); Blood, Urine Large mg/dL (Negative); Glucose,Urine (UA) Negative (Negative); Ketones,Urine Negative (Negative); Mucus,Urine Occasional /LPF (Occasional); Nitrite,Urine Negative (Negative); Protein,Urine Negative; RBC,Urine 33 /HPF (0-4); Urine Appearance Slightly Hazy (Clear); Urine Color Yellow (Yellow); Urine Specific Gravity 1.006 (1.001-1.035); Urine Urobilinogen < 2.0 EU/DL (0.2-1.0); WBC,Urine 59 /HPF (0-6)
[2020-04-09] MEDS: POLYETHYLENE GLYCOL POWDER 17 GM PACK PO SCH (15:34)
[2020-04-09] MEDS ORDERED: LIDOCAINE 2% TOP JELLY 20 ML VIAL INTRAURETH ONE (17:18)
[2020-04-09 18:31] LABS: Bacteria,Urine Occasional /HPF (Few); Bilirubin,Urine Negative (Negative); Blood, Urine Large mg/dL (Negative); Glucose,Urine (UA) Negative (Negative); Ketones,Urine Negative (Negative); Mucus,Urine Occasional /LPF (Occasional); Nitrite,Urine Negative (Negative); Protein,Urine Negative; RBC,Urine 60 /HPF (0-4); Urine Appearance CLEAR (Clear); Urine Color Yellow (Yellow); Urine Urobilinogen < 2.0 EU/DL (0.2-1.0); WBC,Urine 33 /HPF (0-6)
[2020-04-09] MEDS: ATORVASTATIN 40 MG TABLET PO SCH (21:11)
[2020-04-10] MEDS: PIPERACILLIN/TAZOBACTAM 3,375 MG in SODIUM CHLORIDE 0.9% 100 ML IV SCH ×3 (01:04→17:45)
[2020-04-10] MEDS: LEVOTHYROXINE 25 MCG TABLET PO SCH (05:37)
[2020-04-10 05:59] LABS: Basophils % 0.4 % (0.0-0.8); Eosinophils % 0.3 % (0.00-10.9); Hematocrit 34.7 VOL% (42.0-52.0); Hemoglobin 11.2 GM/DL (14.0-18.0); Immature Granulocytes % 1.3 %; Immature Granulocytes Absolute 0.15 #; Lymphocytes # 1.7 10*3/uL (1.4-4.0); Lymphocytes % 15.4 % (21.2-54.2); Mean Corpuscular HGB Conc 32.3 GM/DL (32-36); Mean Corpuscular Volume 96.9 FL (87-102); Mean Platelet Volume 12.7 FL (9.6-12.0); Monocytes % 8.6 % (1.7-12.7); Platelet Count 165 T/CUMM (130-400); Red Blood Count 3.58 MC/CUMM (3.8-5.5); Red Cell Distribution Width 13.6 % (9.3-17.3); White Blood Count 11.2 T/CUMM (4-12)
[2020-04-10 06:12] LABS: Calcium 8.6 MG/DL (8.5-10.1); Osmolality,Calculated 290.6 MOS/KG (273-304); Potassium 3.3 MMOL/L (3.5-5.1)
[2020-04-10] MEDS: POTASSIUM CHLORIDE 20 MEQ TABLET PO PRN ×3 (07:00→19:40)
[2020-04-10] MEDS ORDERED: SODIUM CHLORIDE 0.9% 100 ML IV ONE (08:46)
[2020-04-10] MEDS: POLYETHYLENE GLYCOL POWDER 17 GM PACK PO SCH (09:12)
[2020-04-10] MEDS: ALFUZOSIN 10 MG TABLET PO SCH (09:13)
[2020-04-10] MEDS: CHOLECALCIFEROL 5,000 UNIT TABLET PO SCH (09:13)
[2020-04-10] MEDS: carvediloL 6.25 MG TABLET PO SCH ×2 (09:13→17:45)
[2020-04-10] MEDS: APIXABAN 2.5 MG TABLET PO SCH ×2 (09:13→19:40)
[2020-04-10] MEDS: MULTIVITAMIN (CENTRUM) TABLET PO SCH (09:13)
[2020-04-10] MEDS: ESCITALOPRAM 10 MG TABLET PO SCH (09:14)
[2020-04-10] MEDS: LOSARTAN 50 MG TABLET PO SCH (09:14)
[2020-04-10] MEDS: PANTOPRAZOLE 40 MG TABLET PO SCH (09:14)
[2020-04-10] MEDS: BIMATOPROST 0.01% OPH SOLN 2.5 ML BOTTLE BOTH EYES SCH (09:19)
[2020-04-10] MEDS: INSULIN LISPRO 100 UNIT/ML SUBCUT SCH ×4 (09:21→19:40)
[2020-04-10] MEDS: DIGOXIN 0.25 MG TABLET PO SCH (12:53)
[2020-04-10] MEDS: ATORVASTATIN 40 MG TABLET PO SCH (19:40)
[2020-04-11] MEDS: PIPERACILLIN/TAZOBACTAM 3,375 MG in SODIUM CHLORIDE 0.9% 100 ML IV SCH ×3 (02:42→17:30)
[2020-04-11] MEDS: LEVOTHYROXINE 25 MCG TABLET PO SCH (05:25)
[2020-04-11 05:56] LABS: Basophils % 0.5 % (0.0-0.8); Eosinophils # 0.1 10*3/uL (0.0-0.87); Eosinophils % 0.8 % (0.00-10.9); Hematocrit 31.6 VOL% (42.0-52.0); Hemoglobin 10.5 GM/DL (14.0-18.0); Immature Granulocytes % 1.3 %; Immature Granulocytes Absolute 0.11 #; Lymphocytes # 1.8 10*3/uL (1.4-4.0); Lymphocytes % 20.3 % (21.2-54.2); Mean Corpuscular HGB Conc 33.2 GM/DL (32-36); Mean Corpuscular Volume 94.6 FL (87-102); Mean Platelet Volume 12.2 FL (9.6-12.0); Monocytes % 6.9 % (1.7-12.7); Neutrophils % 70.2 % (38.7-73.9); Platelet Count 161 T/CUMM (130-400); Red Blood Count 3.34 MC/CUMM (3.8-5.5); Red Cell Distribution Width 13.6 % (9.3-17.3); White Blood Count 8.7 T/CUMM (4-12)
[2020-04-11 06:29] LABS: Calcium 8.6 MG/DL (8.5-10.1); Osmolality,Calculated 286.8 MOS/KG (273-304); Potassium 3.3 MMOL/L (3.5-5.1)
[2020-04-11 09:42] LABS: Bacteria,Urine Occasional /HPF (Few); Bilirubin,Urine Negative (Negative); Blood, Urine Negative (Negative); Glucose,Urine (UA) Negative (Negative); Ketones,Urine Negative (Negative); Mucus,Urine Occasional /LPF (Occasional); Nitrite,Urine Negative (Negative); Protein,Urine Negative; RBC,Urine <1 /HPF (0-4); Urine Appearance CLEAR (Clear); Urine Color Colorless (Yellow); Urine Urobilinogen < 2.0 EU/DL (0.2-1.0)
[2020-04-11] MEDS: ALFUZOSIN 10 MG TABLET PO SCH (10:05)
[2020-04-11] MEDS: MULTIVITAMIN (CENTRUM) TABLET PO SCH (10:05)
[2020-04-11] MEDS: APIXABAN 2.5 MG TABLET PO SCH ×2 (10:05→21:27)
[2020-04-11] MEDS: CHOLECALCIFEROL 5,000 UNIT TABLET PO SCH (10:06)
[2020-04-11] MEDS: PANTOPRAZOLE 40 MG TABLET PO SCH (10:06)
[2020-04-11] MEDS: carvediloL 6.25 MG TABLET PO SCH ×2 (10:06→17:30)
[2020-04-11] MEDS: POTASSIUM CHLORIDE 20 MEQ TABLET PO PRN (10:06)
[2020-04-11] MEDS: LOSARTAN 50 MG TABLET PO SCH (10:06)
[2020-04-11] MEDS: POLYETHYLENE GLYCOL POWDER 17 GM PACK PO SCH (10:07)
[2020-04-11] MEDS: ESCITALOPRAM 10 MG TABLET PO SCH (10:07)
[2020-04-11] MEDS: INSULIN LISPRO 100 UNIT/ML SUBCUT SCH ×4 (10:50→21:27)
[2020-04-11] MEDS: BIMATOPROST 0.01% OPH SOLN 2.5 ML BOTTLE BOTH EYES SCH (10:50)
[2020-04-11] MEDS: DIGOXIN 0.25 MG TABLET PO SCH (12:55)
[2020-04-11] MEDS: DEXT 5% NACL 0.45% KCL 40 MEQ 40 MEQ/1,000 ML BAG IV SCH (17:30)
[2020-04-11] MEDS: ATORVASTATIN 40 MG TABLET PO SCH (21:27)
[2020-04-12] MEDS: PIPERACILLIN/TAZOBACTAM 3,375 MG in SODIUM CHLORIDE 0.9% 100 ML IV SCH ×2 (04:09→09:25)
[2020-04-12] MEDS: LEVOTHYROXINE 25 MCG TABLET PO SCH (06:04)
[2020-04-12 08:17] LABS: Calcium 8.6 MG/DL (8.5-10.1); Osmolality,Calculated 286.8 MOS/KG (273-304); Potassium 3.5 MMOL/L (3.5-5.1)
[2020-04-12] MEDS: POLYETHYLENE GLYCOL POWDER 17 GM PACK PO SCH (09:23)
[2020-04-12] MEDS: PANTOPRAZOLE 40 MG TABLET PO SCH (09:23)
[2020-04-12] MEDS: CHOLECALCIFEROL 5,000 UNIT TABLET PO SCH (09:23)
[2020-04-12] MEDS: APIXABAN 2.5 MG TABLET PO SCH (09:23)
[2020-04-12] MEDS: ESCITALOPRAM 10 MG TABLET PO SCH (09:24)
[2020-04-12] MEDS: LOSARTAN 50 MG TABLET PO SCH (09:24)
[2020-04-12] MEDS: ALFUZOSIN 10 MG TABLET PO SCH (09:24)
[2020-04-12] MEDS: carvediloL 6.25 MG TABLET PO SCH (09:24)
[2020-04-12] MEDS: MULTIVITAMIN (CENTRUM) TABLET PO SCH (09:24)
[2020-04-12] MEDS: INSULIN LISPRO 100 UNIT/ML SUBCUT SCH ×2 (09:31→12:08)
[2020-04-12] MEDS: DEXT 5% NACL 0.45% KCL 40 MEQ 40 MEQ/1,000 ML BAG IV SCH ×2 (09:31→14:41)
[2020-04-12] MEDS: BIMATOPROST 0.01% OPH SOLN 2.5 ML BOTTLE BOTH EYES SCH (09:32)
[2020-04-12] MEDS: DIGOXIN 0.25 MG TABLET PO SCH (12:25)
[2020-04-12 16:33] VITALS: BP 149/83
== END 2020-04-12 18:02 | disposition home health service (06) | DRG 690 ==
LOC: EDUNIT# → EDBD → N.ED 14:41 → N.EDINP 14:41 → N.TELES 20:49 → SUATTDRO 04-09 14:30
PROVIDERS: ADMIT Internal Medicine; ATTEND Internal Medicine Geriatric Medicine